=== PATIENT | male | born 1975 | race Caucasian/White ===

== ENCOUNTER → 2022-08-02 | Outpatient (CLI) | payer OTHER ==
--- NOTE | 2022-08-02 08:06 | MR ---
EXAMINATION TYPE: MR shoulder RT wo con DATE OF EXAM: 08/02/2022 COMPARISON: Outside right shoulder x-ray July 18, 2022 HISTORY: Rt shoulder pain with difficulty raising arm overhead for 5 months after fall injury TECHNIQUE: Multiplanar, multisequence imaging of the right shoulder is performed without contrast. FINDINGS: Rotator Cuff: Supraspinatus and infraspinatus tendons are intact. Subscapularis tendon intact. Rotato r cuff muscle bulk is preserved. Acromioclavicular Joint: Mild to moderate capsular hypertrophy and narrowing. Type II downsloping acr omion. Glenohumeral Joint: No significant spurring. Labrum: Fraying and increased signal superior labrum suggesting tearing. Biceps Tendon: The long head of biceps is in normal location within bicipital groove. Intracapsular p ortion is not well seen. Bone marrow signal: No focal abnormal marrow signal is appreciated. Other: No additional significant abnormality is appreciated. IMPRESSION: Probable SLAP type tear superior labrum. No rotator cuff tear. Type II downsloping acromi on noted.
== END | disposition home or self-care (01) ==
LOC: RADMRIMAIN 05:52
PROVIDERS: ATTEND Orthopaedic Surgery
DX: M89.311 Hypertrophy of bone, right shoulder (principal); M25.511 Pain in right shoulder; W19.XXXA Unspecified fall, initial encounter

== ENCOUNTER → 2023-06-17 | Outpatient (CLI) | payer OTHER ==
[2023-06-17 18:53] LABS: Basophils # (A) 0.03 X 10*3/uL (0.00-0.10); Basophils % (A) 0.6 %; Eosinophils # (A) 0.19 X 10*3/uL (0.04-0.35); Eosinophils % (A) 3.5 %; HCT 47.1 % (39.6-50.0); HGB 15.6 g/dL (13.0-17.0); Lymphocytes # (A) 1.82 X 10*3/uL (0.90-5.00); Lymphocytes % (A) 33.8 %; MCH 29.3 pg (27.0-32.0); MCHC 33.1 g/dL (32.0-37.0); MCV 88.5 FL (80.0-97.0); Monocytes # (A) 0.41 X 10*3/uL (0.20-1.00); Monocytes % (A) 7.6 %; NRBC Per 100 WBC 0 X 10*3/uL (0.00-0.01); Neutrophils # (A) 2.92 X 10*3/uL (1.80-7.70); Neutrophils % (A) 54.3 %; Platelet Count 258 X 10*3/uL (140-440); RBC 5.32 X 10*6/uL (4.40-5.60); WBC 5.38 X 10*3/uL (4.50-10.00)
== END | disposition home or self-care (01) ==
LOC: LABWHC1 14:10
PROVIDERS: ATTEND Surgery Plastic and Reconstructive Surgery
DX: Z01.812 Encounter for preprocedural laboratory examination (principal); K46.9 Unspecified abdominal hernia without obstruction or gangrene; R07.89 Other chest pain; R00.1 Bradycardia, unspecified; R94.31 Abnormal electrocardiogram [ECG] [EKG]
CPT/HCPCS: 36415; 85025; 93005

== ENCOUNTER 2023-07-03 13:24 | Day surgery (SDC) | payer OTHER ==
[2023-06-30 13:06] VITALS: BMI 28.0
--- NOTE | 2023-07-03 09:54 | P.GSHP ---
History of Present Illness H&P Date: 07/03/23 CHIEF COMPLAINT: Ventral hernia HISTORY OF PRESENT ILLNESS: The patient is a 48-year-old male presents with a history of swelling and pain along the abdomen from a hernia of the abdomen. Symptoms have been present for over 6 months. Now he presents for surgical intervention. PAST MEDICAL HISTORY: Please see list. PAST SURGICAL HISTORY: Please see list. MEDICATIONS: Please see list. ALLERGIES: Please see list. SOCIAL HISTORY: No illicit drug use FAMILY HISTORY: No reports of Crohn disease or ulcerative colitis. REVIEW OF ORGAN SYSTEMS: CONSTITUTIONAL: Denies any fever or chills. Denies recent weight loss or weight gain. HEENT: Denies any trouble with vision, hearing or nosebleeds. No difficulty swallowing. LYMPHATIC: The patient denies any lumps and bumps around the neck. ENDOCRINE: Denies any thyroid disorders. Denies any blood sugar glucose intolerance. RESPIRATORY: Denies pneumonia. Denies any troubles with breathing or dyspnea on exertion. CARDIOVASCULAR: Denies any chest pain, palpitations, or recent heart attacks. GASTROINTESTINAL: Denies heart burn, constipation or bright red blood per rectum. GENITOURINARY: Denies any blood in urine or increased urinary frequency. MUSCULOSKELETAL: Denies any back pain, stiffness, joint arthritis. NEUROLOGIC: Denies any numbness or tingling along the distal extremities. No seizure disorders or headaches. PSYCHIATRIC: Denies depression or suidical ideation. HEMATOLOGIC: Denies any abnormal bleeding or bruising. BREASTS: Denies any breast lumps, pain or nipple discharge. PHYSICAL EXAM: GENERAL: Well-developed pleasant male in no acute distress. HEENT: No scleral icterus. Extraocular movements grossly intact. Moist buccal mucosa. NECK: Supple without lymphadenopathy. CHEST: Unlabored respirations. Equal bilateral excursions. CARDIOVASCULAR: Regular rate and rhythm. Distal 2+ pulses. ABDOMEN: Soft, nondistended. Palpable defect of the abdomen. No peritoneal signs. MUSCULOSKELETAL: No clubbing, cyanosis, or edema. SKIN: Well perfused. PSYCH: Alert and oriented to self, place and time ASSESSMENT: 1. Ventral hernia PLAN: 1. Recommend proceeding with robotic ventral hernia repair with mesh. 2. Benefits and risks of surgical intervention was discussed including possibility of open technique. 3. DVT prophylaxis. 4. Antibiotic prophylaxis. 5. Non narcotic pain management including abdominal wall block described 6. Blood sugar glucose described. 7. Weight loss management described. 8. Obtain CBC and CMP on day of procedure. Past Medical History Past Medical History: GERD/Reflux, Hyperlipidemia History of Any Multi-Drug Resistant Organisms: None Reported Past Surgical History: Cholecystectomy Additional Past Surgical History / Comment(s): LT KNEE BURSA REMOVED Past Anesthesia/Blood Transfusion Reactions: No Reported Reaction Smoking Status: Current every day smoker - Past Family History Mother Family Medical History: No Reported History Medications and Allergies Home Medications Medication Instructions Recorded Confirmed Type Atorvastatin [Lipitor] 10 mg PO HS 06/30/23 06/30/23 History Cyclobenzaprine [Flexeril] 10 mg PO DAILY PRN 06/30/23 06/30/23 History Gas Releif Chew 80 mg PO DAILY PRN 06/30/23 History Omeprazole 20 mg PO HS 06/30/23 06/30/23 History Allergies Allergy/AdvReac Type Severity Reaction Status Date / Time almond oil Allergy Dyspnea Verified 06/30/23 12:37
[~2023-07-03 13:24] MED LIST: MIDAZOLAM 2 MG/2 ML VIAL IV PRN
[2023-07-03] MEDS: LACTATED RINGERS 1,000 ML IV SCH (14:22)
[2023-07-03] MEDS: ONDANSETRON 4 MG/2 ML VIAL IVP PRN (14:27)
[2023-07-03] MEDS: DEXAMETHASONE SOD PHOSPHATE 4 MG/ML 1 ML VIAL IVP ONE (14:27)
[2023-07-03] MEDS: MELOXICAM 7.5 MG TAB PO PRN (14:28)
[2023-07-03] MEDS: TAMSULOSIN 0.4 MG CAP.ER.24H PO STA (14:28)
[2023-07-03] MEDS: ACETAMINOPHEN TAB 500 MG TAB PO PRN (14:28)
[2023-07-03] MEDS: fentaNYL (PF) 50 MCG/ML 2 ML AMP IVP ONE ×2 (14:49→19:01)
[2023-07-03] MEDS: MIDAZOLAM 2 MG/2 ML VIAL IVP ONE (14:49)
[2023-07-03] MEDS: HEPARIN SODIUM,PORCINE 5,000 UNIT/ML 1 ML VIAL SQ PRN (15:04)
[2023-07-03] MEDS ORDERED: SUCCINYLCHOLINE CHLORIDE 200 MG/10 ML VIAL IV ONE (15:32)
[2023-07-03] MEDS ORDERED: fentaNYL (PF) 50 MCG/ML 2 ML AMP ONE ×2 (15:32→18:59)
[2023-07-03] MEDS ORDERED: ROCURONIUM 10 MG/ML (5 ML VIAL) IV ONE (15:32)
[2023-07-03] MEDS ORDERED: GLYCOPYRROLATE 0.2 MG/ML 2 ML VIAL ONE (15:32)
[2023-07-03] MEDS ORDERED: SODIUM CHLORIDE 0.9% (PF) 10 ML VIAL ONE (15:32)
[2023-07-03] MEDS ORDERED: DEXAMETHASONE SOD PHOSPHATE 4 MG/ML 1 ML VIAL ONE (15:32)
[2023-07-03] MEDS ORDERED: HYDROmorphone (PF) 1 MG/ML ONE (15:32)
[2023-07-03] MEDS ORDERED: ROPIVACAINE 5 MG/ML 30 ML VIAL ONE (15:32)
[2023-07-03] MEDS ORDERED: PROPOFOL 10 MG/ML 20 ML VIAL IV ONE (15:32)
[2023-07-03] MEDS ORDERED: LIDOCAINE 1% INJ 10MG/ML (20 ML MDV) ONE (15:32)
[2023-07-03] MEDS ORDERED: NEOSTIGMINE 1 MG/ML 10 ML VIAL ONE (15:32)
[2023-07-03] MEDS: LIDOCAINE 1%-EPI 1:100,000 20 ML VIAL SQ ONE (16:11)
--- NOTE | 2023-07-03 17:51 | P.OP ---
Date of Procedure: 07/03/23 Description of Procedure: SURGEON: KIRSTEN SIERRA MD PREOPERATIVE DIAGNOSES: 1. Initial epigastric ventral hernia with incarceration 2. Hyperlipidemia 3. Gastroesophageal reflux disease 4. Tobacco abuse disorder POSTOPERATIVE DIAGNOSES: 1. Initial epigastric ventral hernia with incarceration, 2 x 2 cm 2. Hyperlipidemia 3. Gastroesophageal reflux disease 4. Tobacco abuse disorder 5. Abdominal wall adhesions OPERATION: 1. Robotic-assisted da Meagan Xi laparoscopic repair of initial incarcerated umbilical hernia with mesh, ventralight ST mesh 11.4 cm 2. Robotic-assisted da Meagan Xi laparoscopic lysis of adhesion Anesthesia: GETA, regional, local Estimated Blood Loss (ml): 5 Pathology: 1. Incarcerated umbilical hernia defect COMPLICATIONS: None. Operative Findings: 1. Umbilical hernia defect 2 x 2 cm 2. Fascia repaired using #1 V-lock suture 3. Right indirect umbilical hernia without incarceration 4. Intra-abdominal omental to abdominal wall adhesions involving epigastrium of unclear etiology, lysed INDICATIONS: The patient is a 48-year-old male who presents with a personal abdominal wall hernia. Surgical intervention with laparoscopic versus robotic and open techniques were reviewed. Placement of mesh was also reviewed. Benefits and risks were thoroughly described. Informed consent was obtained. DESCRIPTION OF PROCEDURE: The patient was brought into the operating room and laid in supine position. After general induction, the abdomen had been prepped and draped in standard sterile fashion. Ioban draping was also placed. Prior to incision, a timeout protocol was confirmed with surgical team regarding the patient's name including procedures to be performed. The robot was primed prior to the procedure. A field block using local anesthetic was placed along hernia site including the proposed port sites. Initial incision was made with an #11 blade along the left upper quadrant. A 0 degree 5 mm laparoscopic trocar entry was performed and insufflated. Three 8 mm ports were placed along the left lateral abdominal wall under direct localization after exchanging the 5-mm for an 8 mm port. Placements of the ports were 15 cm from the target anatomy and 10 cm apart. An accessory 12 mm port was placed at the left upper quadrant for exchange of mesh including sutures. The [employer] and [employer] Xi robot was previously primed, prepped and draped then docked from the right side of the patient onto the left side of the patient. I then sat at the robot [employer] Xi console where working arms of the robot including Bovie cautery connected to robotic scissors, needle commercial driver, and graspers placed by the assistant fitness manager. Incarcerated omental contents were found along the umbilicus. Moderate epigastric adhesions omentum to the abdominal wall was found of unclear etiology. Sharp lysis of adhesions using electro-Bovie cautery with scissors was performed. The defects were reduced with preperitoneal fat of the umbilicus. Umbilical hernia defect 2 x 2 cm was found. Separate right indirect inguinal hernia 1-cm was identified however undisturbed. The incarcerated contents were reduced as the peritoneal fat was cleaned from the abdominal wall. Next, hemostasis was checked with cautery. The hernia defects were oversewn using #1 nonabsorbable V-lock suture with fascial imbrication x 2. Next, ventralight ST mesh 11.4 cm was placed with the rough side towards the abdominal wall as to cover the umbilical defect. 2-0 VLOC 9 inch sutures were used to fixate the mesh. A final endoscopic imaging was obtained. All instruments and pneumoperitoneum were evacuated from the abdominal cavity. The da Meagan Xi robot was undocked from the patient. I re-scrubbed into the case for closure of incisions. The fascia of the 12-mm port was probed and less than 8-mm in size. The incisions were reapproximated using 4-0 Monocryl in an interrupted subcuticular fashion. Liquid glue was applied to the skin after cleansing the skin with normal saline and dilute hydrogen peroxide. An abdominal binder was placed. An umbilical dressing was placed prior. At the end of the procedure, needle, sponge, and instrument count had been verified correct by surgical product sales consultant. The patient was taken to the postanesthesia care unit in stable condition. Plan - Discharge Summary Discharge Rx Participant: No New Discharge Prescriptions: New Ibuprofen [Motrin] 600 mg PO Q8HR PRN #30 tab PRN Reason: Pain Cyclobenzaprine [Flexeril] 10 mg PO TID #30 tab Acetaminophen Tab [Tylenol Tab] 1,000 mg PO Q6HR PRN #30 tablet PRN Reason: Pain Continue Cyclobenzaprine [Flexeril] 10 mg PO DAILY PRN PRN Reason: Pain Atorvastatin [Lipitor] 10 mg PO HS Omeprazole 20 mg PO HS Gas Releif Chew 80 mg PO DAILY PRN PRN Reason: GAS/BLOATING Discharge Medication List Atorvastatin [Lipitor] 10 mg PO HS 06/30/23 [History] Cyclobenzaprine [Flexeril] 10 mg PO DAILY PRN 06/30/23 [History] Gas Releif Chew 80 mg PO DAILY PRN 06/30/23 [History] Omeprazole 20 mg PO HS 06/30/23 [History] Acetaminophen Tab [Tylenol Tab] 1,000 mg PO Q6HR PRN #30 tablet 07/03/23 [Rx] Cyclobenzaprine [Flexeril] 10 mg PO TID #30 tab 07/03/23 [Rx] Ibuprofen [Motrin] 600 mg PO Q8HR PRN #30 tab 07/03/23 [Rx] Follow up Appointment(s)/Referral(s): Kirsten Sierra MD [STAFF PHYSICIAN] - 07/08/23 6:00 pm Patient Instructions/Handouts: Laparoscopic Herniorrhaphy (IP), Ventral Hernia Repair (GEN) Activity/Diet/Wound Care/Special Instructions: TELEHEALTH - DR WILL CALL YOU BETWEEN 9 am to 8 pm No lifting for 4 pounds in 4 weeks, August 03 Using antibacterial soap. May shower. No bathtub soaks for 2 weeks, July 16 Wear abdominal binder daily for comfort except for showering. Use ice along incisions for today to prevent swelling. Use Tylenol, simethicone and ibuprofen or Aleve scheduled for the next 24-48 hours for best pain relief. Discharge Disposition: HOME SELF-CARE
[2023-07-03 17:56] VITALS: TEMP 96.8
[2023-07-03] MEDS: HYDROmorphone 0.5 MG/0.5 ML SYRINGE IVP PRN (18:00)
[2023-07-03 19:12] VITALS: RESP 16
[2023-07-03] MEDS: KETOROLAC 15 MG/ML 1 ML VIAL ONE (19:14)
[2023-07-03 19:48] VITALS: BP 111/67; PULSE 67
== END 2023-07-03 20:10 | disposition home or self-care (01) ==
LOC: OR 13:24
PROVIDERS: ATTEND Surgery Plastic and Reconstructive Surgery
DX: K43.6 Other and unspecified ventral hernia with obstruction, without gangrene (principal); K66.0 Peritoneal adhesions (postprocedural) (postinfection); K21.9 Gastro-esophageal reflux disease without esophagitis; E78.5 Hyperlipidemia, unspecified; J45.909 Unspecified asthma, uncomplicated; F17.210 Nicotine dependence, cigarettes, uncomplicated; Z90.49 Acquired absence of other specified parts of digestive tract; Z91.018 Allergy to other foods; Z79.899 Other long term (current) drug therapy; Z98.890 Other specified postprocedural states
CPT/HCPCS: 49596; S2900; 64999; 88302